=== PATIENT | female | born 1965 | race African-American/Black ===

== ENCOUNTER 2019-08-29 00:15 | Emergency (ER) | payer MEDICAID ==
[~2019-08-29] VITALS: Ht 165.1 cm; Wt 101.6 kg
[2019-08-29 00:32] VITALS: Ht 165.1 cm; Wt 101.6 kg
[2019-08-29 01:21] LABS: BASOPHIL % 0.7 % (0-2); PLATELET COUNT 221 x10^3mcL (130-400)
[2019-08-29 01:28] LABS: RED CELL DISTRIBUTION WIDTH 17.9 % (11.5-14.5)
[2019-08-29 01:56] LABS: CALCIUM 8.8 mg/dL (8.5-10.1); CARBON DIOXIDE 27.2 mmol/L (21-32); CHLORIDE SERUM 108 mmol/L (98-107); CREATININE SERUM 0.8 mg/dL (0.6-1.0); GFR1 > 60 mL/min; GLUCOSE SERUM 103 mg/dL (74-106); POTASSIUM SERUM 4.4 mmol/L (3.5-5.1); SODIUM SERUM 140 mmol/L (136-145)
[2019-08-29 02:03] LABS: ALKALINE PHOSPHATASE 80 U/L (46-116); ALT/SGPT 16 U/L (14-59); AST/SGOT 12 U/L (15-37); BILIRUBIN TOTAL 0.18 mg/dL (0.20-1.00); TOTAL PROTEIN, SERUM 6.7 g/dL (6.4-8.2)
[2019-08-29 06:58] VITALS: BP 110/55
== END 2019-08-29 06:58 | disposition home or self-care (01) ==
LOC: ED 00:15
PROVIDERS: Emergency Medicine
DX: R07.89 Other chest pain (principal)
CPT/HCPCS: 36415; Q0092; Q9967